=== PATIENT | female | born 1975 | race Caucasian/White ===

== ENCOUNTER 2023-09-05 16:19 | Emergency (ER) | payer BC ==
[~2023-09-05] VITALS: Ht 167.6 cm; Wt 79.4 kg
[2023-09-05 16:20] VITALS: BP_SYST 140; PULSE 73; RESP 19; TEMP 97.4; O2SAT 99
[2023-09-05 19:04] VITALS: BP_SYST 126; PULSE 68; RESP 17; TEMP 97.4; O2SAT 100
== END 2023-09-05 19:04 | disposition home or self-care (01) ==
LOC: SED 16:19
DX: F41.9 Anxiety disorder, unspecified (principal); Z88.6 Allergy status to analgesic agent; Z88.1 Allergy status to other antibiotic agents; Z88.5 Allergy status to narcotic agent; Z91.018 Allergy to other foods; Z98.890 Other specified postprocedural states
CPT/HCPCS: 70450-TC; 81025; 93005; 99284